=== PATIENT | female | born 1945 | race Hispanic/Latino ===

== ENCOUNTER 2017-04-02 12:39 | Outpatient (CLI) | payer OTHER | END 2017-04-02 19:08 | disposition home or self-care (01) | LOC: RAD 12:39 | DX: M25.522 Pain in left elbow (principal) ==

== ENCOUNTER 2017-05-03 13:13 | Outpatient (CLI) | payer OTHER | END 2017-05-03 14:16 | disposition home or self-care (01) | LOC: RAD 13:13 | DX: M79.672 Pain in left foot (principal) ==

== ENCOUNTER 2017-11-20 13:20 | Outpatient (CLI) | payer OTHER | END 2017-11-20 13:32 | disposition short-term general hospital (02) | LOC: AMB 13:20 | DX: M54.89 Other dorsalgia (principal); R10.84 Generalized abdominal pain | CPT/HCPCS: A0425; A0427 ==

== ENCOUNTER 2017-11-20 13:39 | Emergency (ER) | payer OTHER ==
[~2017-11-20] VITALS: Ht 149.9 cm; Wt 113.4 kg
[2017-11-20 13:25] VITALS: TEMP 98.4
[2017-11-20 14:20] LABS: PLATELET COUNT 234 K/uL (152-353)
[2017-11-20 14:38] LABS: POTASSIUM 3.8 mmol/L (3.6-5.2)
[2017-11-20 16:03] VITALS: BP 116/72
== END 2017-11-20 16:06 | disposition home or self-care (01) ==
LOC: ED 13:39
DX: R55 Syncope and collapse (principal); M47.894 Other spondylosis, thoracic region; M47.896 Other spondylosis, lumbar region; M50.90 Cervical disc disorder, unspecified, unspecified cervical region; L30.4 Erythema intertrigo; W18.39XA Other fall on same level, initial encounter; Y92.89 Other specified places as the place of occurrence of the external cause
CPT/HCPCS: 80053; 85027; 93005; 99283